=== PATIENT | male | born 1990 | race Caucasian/White ===

== ENCOUNTER 2024-05-06 16:47 | Emergency (ER) | payer SELFPAY ==
[2024-05-06 16:55] VITALS: BP 120/65; PULSE 79; RESP 18; TEMP 36.8; O2SAT 98; BMI 36.6
--- NOTE | 2024-05-06 17:06 | ED_ITS ---
HPI - General Adult General Chief complaint: Weakness Stated complaint: l leg pain-r shoulder pain Time Seen by Provider: 05/06/24 17:05 Source: patient Mode of arrival: ambulatory Limitations: no limitations History of Present Illness ED Provider: DASH THOMASON PA-C HPI narrative: 33-year-old male with past medical history significant for sciatica presents to the ED today for evaluation of atraumatic right shoulder and left hip/low back pain x3 days. 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 Reports gradual onset of pain in his right shoulder and left hip. Left hip pain extends into left buttock and down left thigh. Reports history of sciatica 3 years ago, states this feels similar. Has been trialing Tylenol and muscle cream at home with temporary relief. Denies injury, trauma, falls. Denies numbness, tingling, weakness of the lower extremities. Denies saddle anesthesia. Denies bowel or bladder incontine nce or retention. Denies IV drug use. Denies history of spinal surgeries. Related Data Previous Rx's ?Medication ?Instructions ?Recorded cyclobenzaprine 5 mg tablet 5 mg PO Q8H #7 tabs 05/06/24 lidocaine 5 % topical patch 1 patch topical DAILY #15 ea 05/06/24 (Lidoderm) Allergies Allergy/AdvReac Type Severity Reaction Status Date / Time shellfish derived Allergy Intermediate Swelling Verified 05/06/24 17:00 Review of Systems Review of Systems: Constitutional: No fever, chills, fatigue, night sweats, weight changes ENT/Mouth: No ear pain, hearing loss, nasal congestion, sinus pain, rhinorrhea, sore throat Eyes: No eye pain, swelling, redness, vision changes, discharge Cardio: No chest pain, palpitations, [place], orthopnea, peripheral edema Pulm: No SOB, cough, sputum, wheezing, dyspnea, hemoptysis GI: No nausea, vomiting, hematemesis, abdominal pain, diarrhea, constipation, hematochezia, melena : No irregular bleeding, dysuria, frequency, urgency, hesitancy, hematuria, flank pain, urinary flow changes, urinary incontinence or retention MSK: No neck pain, joint pain, myalgias, +left hip pain, +right shoulder pain Skin: No lesions, rashes Neuro: No weakness, numbness, paresthesias, LOC, dizziness, headache All other systems reviewed and are negative. [facility] Past Medical History Attestation statement: The following information was validated with the patient. Source: old records reviewed and nursing notes reviewed Social History Social History Advance Directives: No Advance Directives Information Provided: No Do you have a plan to hurt others: No Plan Physical Exam ED Vital Signs: Vital Signs - 24 hr 05/06/24 16:55 Temperature 98.2 F Pulse Rate 79 Respiratory Rate 18 Blood Pressure 120/65 Pulse Oximetry 98 Oxygen Delivery Method Room Air BMI result Body Mass Index 36.6 Vital signs stable General: Well appearing, in no acute distress. Skin: Warm, dry, intact. No rashes or lesions. Head: Normocephalic, atraumatic..? Cardiac: Chest wall symmetric. RRR. No MRG. No JVD. Lungs: Normal respiratory effort without accessory muscle use. CTA bilaterally? Abdomen: Soft, non-tender, non-distended. No rebound tenderness or guarding Back: No midline spinous or paraspinal tenderness. No step off deformity. Ext: +palpable spasm over right trapezius muscle. He is able to abduct right shoulder with full ROM intact. 2+ radial/ulnar pulse intact. Neuro: AOx3. Normal speech. Ambulating with steady gait. Psych: Appropriate mood and affect. Responds appropriately to questions. Course Course Course Narrative: 1709 -- physical exam consistent with sciatica and muscle spasm. Imaging is not warranted at this time as I do not suspect acute fracture or subluxation. No red flag symptoms. Patient is agreeable with this. Plan to send patient home with Flexeril and lidocaine patches for treatment. Patient has remained stable throughout ED visit today. Discussed worrisome signs and symptoms and when to return to the ED. All questions answered at this time. Patient is agreeable with disposition and stable for discharge. Medical Decision Making Medical Decision Making MDM Narrative: 33-year-old male with past medical history significant for sciatica presents to the ED today for evaluation of atraumatic right shoulder and left hip/low back pain x3 days. Vital signs stable, afebrile. He is nontoxic-appearing and in no acute distress. On exam of right shoulder, there is palpable spasm over right trapezius muscle. He is able to abduct right shoulder with full ROM intact. 2+ radial/ulnar pulse intact. No midline spinous tenderness or step-off deformity. Ambulating with steady gait. Neurovascularly intact distally. Sensation intact throughout. Strength 5/5 intact throughout. Concern for MSK sprain/strain, sciatica, arthritis, muscle spasm. Unlikely fracture, disc herniation, subluxation, rotator cuff injury/tear, cord compression, cauda equina, Guillain-Brock[place], epidural abscess. Plan for imaging and pain control. Differential Diagnosis Differential Diagnoses: The differential diagnosis associated with the presentation includes as above Admission/Observation Not indicated. External Record Review External record reviewed: Inpatient record Prescription Management I considered prescription management with: Pain Medication (Tylenol, Motrin) and Other (flexeril, lido patch) Chronic Conditions Patient?s care impacted by: Other (Sciatica) Social Determinants Patient?s care significantly limited by Social Determinants of Health including: Other Social Determinant of Health Critical Care Time Critical Care Time Critical Care Time: No Discharge Plan Discharge Clinical Impression: Lumbar spine strain, Sciatica, Muscle strain of right shoulder Patient Disposition: Home, Self-Care Instructions: Sciatica (ED), Lower Back Exercises (ED) Additional Instructions: You were evaluated in the Emergency Department today for your left hip and right shoulder pain. Your evaluation did not show signs of medical conditions requiring emergent intervention at this time. Avoid bending, lifting, or twisting. Use ice several times per day for 20 minutes at a time for the next 48 hours and then change to heat. We recommend you take 600mg ibuprofen every 6 hours or tylenol 650mg every 6 hours as needed for pain. If needed, you can alternate these medications so that you take one medication every 3 hours. For example, at noon take ibuprofen, then at 3pm take tylenol, then at 6pm take ibuprofen. Flexeril is a muscle relaxer. Take this at night as it makes you drowsy. Do not drive, drink alcohol, or operate machinery while taking it. Lidoderm patches are numbing patches. Apply to painful areas. Please schedule an appointment for follow-up with your primary care provider this week for further evaluation of your symptoms. Return to the Emergency Department if you experience worsening back pain, difficulty walking, fevers, numbness, tingling, incontinence, or any other concerning symptoms. In the case of an emergency call 911. Prescriptions: New cyclobenzaprine 5 mg tablet 5 mg PO Q8H Qty: 7 0RF lidocaine [Lidoderm] 5 % adhesive patch,medicated 1 patch topical DAILY Qty: 15 0RF Rx Instructions: leave on most painful area for up to 12 hrs Stand Alone Forms: Work/School Release Discharge Date/Time: 05/06/24 17:15 Print Language: Faroese
== END 2024-05-06 17:15 | disposition home or self-care (01) ==
PROVIDERS: Emergency Provider Emergency Medicine
DX: S39.012A Strain of muscle, fascia and tendon of lower back, initial encounter (principal); S46.911A Strain of unspecified muscle, fascia and tendon at shoulder and upper arm level, right arm, initial encounter; X58.XXXA Exposure to other specified factors, initial encounter; Y93.89 Activity, other specified; Y92.89 Other specified places as the place of occurrence of the external cause; Y99.8 Other external cause status
CPT/HCPCS: 99281; 99283